=== PATIENT | female | born 1970 | race Caucasian/White ===

== ENCOUNTER 2022-11-24 20:48 | Emergency (ER) | payer BC, SELFPAY ==
[2022-11-24 20:58] VITALS: BP 122/78; PULSE 77; RESP 18; TEMP 36.7; O2SAT 100; BMI 34.4
--- NOTE | 2022-11-24 21:15 | PC.NURSE ---
Laceration to right second finger cleansed with hibicleanse and covered with dry dressing
--- NOTE | 2022-11-24 23:36 | XR_ITS ---
The [address] [address] Patient Name: TERRA ZEPEDA MRN: [id number] date: 1970 Sex: F Assigned Patient Location: ER Current Patient Location: ED.MAIN Accession/Order Number: [id number] Exam Date: 11/24/2022 23:50 Report Date: 11/25/2022 00:49 At the request of: NANI WELLER Procedure: XR finger LT min 2V EXAM: XR finger LT min 2V HISTORY: left hand injury/index COMPARISON: None. TECHNIQUE: AP, oblique and lateral views of the left second digit/index finger. FINDINGS: No acute or intrinsic osseous or articular abnormality is seen. There appears be a laceration near the base of the second digit overlying the proximal phalanx. No soft tissue gas or foreign body is seen. XR/XR finger LT min 2V IMPRESSION: Second digit laceration without foreign body or acute fracture. Electronically authenticated by: ATIF HANDY Date: 11/25/2022 00:49
--- NOTE | 2022-11-24 23:37 | ED_ITS ---
HPI - Extremity Injury (Upper) General Chief Complaint: Extremity Injury, Upper Stated Complaint: FINGER LACERATION Time Seen by Provider: 11/24/22 22:11 Source: patient Mode of arrival: walk-in Limitations: no limitations History of Present Illness HPI narrative: patient bumped her left index finger on a precision jig grinder at home. sustained a laceration to the dorsum of her finger. Denies numbness or weakness or other in jury. Not sure when she had her last tetanus Related Data Home Medications Medication Instructions Recorded Confirmed loratadine 10 mg tablet (Claritin) 10 mg PO DAILY 11/24/22 11/24/22 Allergies Allergy/AdvReac Type Severity Reaction Status Date / Time Penicillins Allergy Intermediate Verified 11/24/22 21:03 Review of Systems ROS Status of ROS 10 or more systems reviewed and unremarkable except as noted in history and below Exam Constitutional Vital Signs, click to edit/add: Last Vital Signs Temp 98.0 F 11/24/22 20:58 Pulse 77 11/24/22 20:58 Resp 18 11/24/22 20:58 BP 122/78 11/24/22 20:58 Pulse Ox 100 11/24/22 20:58 O2 Del Method Room Air 11/24/22 20:58 Common normals: no apparent distress, average body habitus, oriented x3, no limitations, healthy appearing and alert Eye Common normals: EOMs intact bilaterally and conjunctivae normal Respiratory Common normals: no retractions and no use of accessory muscles Extremity Other: SQ lac V shape dorsum of left index finger. 2.5cm. Able to extend finger completely. N/V intact Neuro Common normals: oriented x3, CN's II-XII intact bilaterally, moves all extremities, no focal motor deficits and no sensory deficits noted Psych Appearance: grossly normal Course Vital Signs Vital signs: Vital Signs Temperature 98.0 F 11/24/22 20:58 Pulse Rate 77 11/24/22 20:58 Respiratory Rate 18 11/24/22 20:58 Blood Pressure 122/78 11/24/22 20:58 Pulse Oximetry 100 11/24/22 20:58 Oxygen Delivery Method Room Air 11/24/22 20:58 Temperature 98.0 F 11/24/22 20:58 Pulse Rate 77 11/24/22 20:58 Respiratory Rate 18 11/24/22 20:58 Blood Pressure 122/78 11/24/22 20:58 Pulse Oximetry 100 11/24/22 20:58 Oxygen Delivery Method Room Air 11/24/22 20:58 MDM - Extremity Injury (Upper) MDM Narrative Medical decision making narrative: patient presents with acute lac left dorsal index finger. lac repaired as above. Tolerated well. Discharged home to follow up with her doctor Discharge Plan Discharge Chief Complaint: Extremity Injury, Upper Clinical Impression: Finger laceration Patient Disposition: Home, Self-Care Prescriptions / Home Meds: No Action loratadine [Claritin] 10 mg tablet 10 mg PO DAILY Instructions: Finger Laceration (ED) Additional Instructions: have wound rechecked in 2-3 days and stitches removed in 10-12 days Stand Alone Forms: Portal Instructions Referrals: KATHYA LARSEN [Primary Care Provider] - 1 week Procedures ED Procedure Instructions Procedures Procedures: left finger lac. V shape 4.5cm lAC with exposure of SQ tissue. Inspection neg for FB xray neg for FB per my preliminary review 1% lidocaine as a local betadine and saline used to clean the wound inspected and no evidence of tendon lac repaired with # 8 5.0 nylon stitches.
[2022-11-24] MEDS: ADACEL DIPH,PERTUSS(ACELL),TET VAC/PF 0.5 ML ADULT SYRINGE IM (23:48)
[2022-11-24] MEDS: LIDOCAINE HCL 1% 100 MG/10 ML MDV INJ (23:51)
[2022-11-25] MEDS: CLINDAMYCIN HCL 150 MG CAPSULE 300 MG PO (01:09)
== END 2022-11-25 01:15 | disposition home or self-care (01) ==
PROVIDERS: Emergency Provider Internal Medicine; PCP Family Medicine
DX: S61.211A Laceration without foreign body of left index finger without damage to nail, initial encounter (principal); Z23 Encounter for immunization; W22.8XXA Striking against or struck by other objects, initial encounter; Z79.899 Other long term (current) drug therapy
CPT/HCPCS: 12001; 73140; 90471; 90715; 99284

== ENCOUNTER 2023-12-15 13:12 | Outpatient (OUT) | payer BC, SELFPAY | END 2023-12-15 13:13 | disposition home or self-care (01) | LOC: PST 13:12 | PROVIDERS: PCP Family Medicine; Visit Provider Surgery | DX: Z01.818 Encounter for other preprocedural examination (principal); Z12.11 Encounter for screening for malignant neoplasm of colon ==

== ENCOUNTER 2023-12-22 08:16 | Day surgery (SDC) | payer BC, SELFPAY ==
--- OUTSIDE RECORDS SUMMARY | 2023-12-22 08:23 | XMS_ITS | CCD ---
Author Organization [facility] [place] [facility] Care Team Providers Care Medical Records Director Name Role Phone Kathya Larsen Primary Care Provider LEDA GALVAN Attending Unavailable LEDA GALVAN Admitting Unavailable LEDA GALVAN Consulting Unavailable LEDA GALVAN Attending Unavailable LEDA GALVAN Admitting Unavailable LEDA GALVAN Consulting Unavailable Kathya Larsen DO Primary Care Provider [phone] ANY YOUNG Attending Unavailable ELTON WHITLEY Attending Unavailable Tigre Cruz DO Primary Care Provider [phone] Hector [employer] F[employer] LAYER - EVICTION SPECIALISTAny Primary Care Provi robby TARIQ MAK Referring Unavailable KATHYA LARSEN Primary Care Unavailable TARIQ MAK Referring Unavailable KATHYA LARSEN Primary Care Unavailable TARIQ MAK Referring Unavailable ANY YOUNG Primary Care Unavailable Allergies Allergy Classification Reported Allergen(s) Allergy Type Date of Onset Reaction(s) Facility Penicillins (antibiotic) (1 source) Penicillins Drug Allergy 0 [facility] (4 sources) Penicillins Propensity to adverse reactions to drug 0 [facility] [place] ([facility] sources) Penicillins Drug Intolerance 0 [facility] [employer] Work Phone: (1 source) Penicillins Propensity to adverse reactions to drug 0 [facility] [employer] (formerly [employer]) [place] Digital Medications Current Medications Medication Drug Class(es) Dates Sig (Normalized) Sig (Original) albuterol sulfate HFA 108 (90 Base) MCG/ACT inhaler 4 puff (1 source) Start: 01-09-2020 albuterol sulfate HFA 108 (90 Base) MCG/ACT inhaler 4 puff ascorbic acid 60 mg / beta carotene 5000 unt / copper sulfate 40 mg / dl-alpha tocopheryl acetate 30 unt / sodium selenite 0.04 mg / zinc oxide 40 mg oral tablet (5 sources) Vitamin C take 1 tablet by mouth once daily Multiple Vitamins-Minerals (HAIR/SKIN/NAILS) TABS Take by mouth daily 0 Active bisacodyl 5 mg delayed release oral tablet (2 sources) Stimulant Laxative Start: 11-30-2023 End: 11-30-2023 take 1 tablet by mouth once bisacodyl (Dulcolax) 5 MG EC tablet Indications: Encounter for screening for malignant neoplasm of colon Take 1 tablet (5 mg) by mouth 1 time for 1 dose Do not crush, chew, or split. Take as detailed on clinic hand out for colonoscopy prep 1 tablet 11/30/2023 11/30/2023 Active Ca Phosphate-Cholecalci ferol (CALCIUM WITH D3 PO) (3 sources) Ca Phosphate-Cholecalc iferol (CALCIUM WITH D3 PO) Take by mouth Once a day 4 times a week Active calcium carbonate 1250 mg / cholecalciferol 200 unt oral tablet (6 sources) Vitamin D take 1 tablet by mouth once daily calcium-vitamin D (OSCAL-500) 500-200 MG-UNIT per tablet Take 1 tablet by mouth daily 0 Active cholecalciferol 0.05 mg oral tablet (3 sources) Vitamin D Start: 11-11-2023 take 1 tablet by mouth once daily cholecalciferol (Vitamin D-3) 50 MCG (2000 UT) tablet Indications: Vitamin D deficiency Take 1 tablet (50 mcg) by mouth Daily 11/11/2023 Active chondroitin sulfates 400 mg / glucosamine sulfate 500 mg oral tablet (3 sources) glucosamine-nancy shantel itin 500-400 MG tablet Take 1 tablet by mouth Once a day 4 times a week Active escitalopram 20 mg oral tablet (2 sources) Serotonin Reuptake Inhibitor Start: 02-07-2021 take 1 tablet by mouth once daily escitalopram (LEXAPRO) 20 MG tablet Indications: Irritability TAKE 1 TABLET BY MOUTH EVERY DAY 30 tablet 12 02/07/2021 Active loratadine 10 mg oral tablet (12 sources) take 1 tablet by mouth once daily loratadine (CLARITIN) 10 MG tablet Take 1 tablet by mouth daily Active Multiple Vitamins-Minerals (HAIR/SKIN/NAILS) TABS (1 source) take 1 tablet by mouth once daily Multiple Vitamins-Minerals (HAIR/SKIN/NAILS) TABS Take by mouth daily 0 Active naproxen sodium 220 mg oral capsule (6 sources) Nonsteroidal Anti-inflammatory Drug Naproxen Sodium (ALEVE) 220 MG CAPS Take by mouth daily as needed for Pain 0 Active phentermine hydrochloride 37.5 mg oral tablet (1 source) Sympathomimetic Amine Anorectic Start: 02-15-2020 End: 03-16-2020 take 1 tablet by mouth once daily before breakfast phentermine (ADIPEX-P) 37.5 MG tablet Indications: Obesity (BMI 30.0-34.9) Take 1 tablet by mouth every morning (before breakfast) for 30 days. 30 tablet 0 02/15/2020 03/16/2020 Active 24 hr phentermine 15 mg / topiramate 92 mg extended release oral capsule (4 sources) Sympathomimetic Amine Anorectic Start: 12-12-2019 End: 01-11-2020 take 1 capsule by mouth once daily Phentermine-Topiram ate (QSYMIA) 15-92 MG CP24 Indications: Obesity (BMI 35.0-39.9 without comorbidity) Take 1 capsule by mouth daily for 30 days. 30 capsule 0 12/12/2019 01/11/2020 Active polyethylene glycol 3350 67004 mg powder for oral solution (2 sources) Osmotic Laxative Start: 11-30-2023 End: 11-30-2023 take 17 g by mouth once polyethylene glycol, PEG, 3350 (Glycolax) 17 GM/SCOOP powder Indications: Colonoscopy Take 238 g by mouth 1 (one) time for 1 dose Take as detailed from clinic hand out for colonoscopy prep 238 g 11/30/2023 11/30/2023 Active Probiotic Product (PROBIOTIC DAILY PO) (2 sources) Probiotic Produc t (PROBIOTIC DAILY PO) Take by mouth 0 Active Completed/Discontinued Medications Medication Drug Class(es) Dates Sig (Normalized) Sig (Original) azithromycin 250 mg oral tablet (4 sources) Macrolide Antimicrobial Start: 11-09-2023 End: 11-30-2023 azithromycin (Zithromax) 250 MG tablet Indications: Acute non-recurrent pansinusitis Take 2 tablets day one then 1 tablet daily 6 tablet 11/09/2023 11/30/2023 Discontinued (Therapy completed) Start: 01-09-2020 End: 01-13-2020 azithromycin (ZITHROMAX Z-PA K) 250 MG tablet Indications: Atypical pneumonia , Bronchospasm Take 2 tablets (500 mg) on Day 1, and then take 1 tablet (250 mg) on days 2 through 5. 1 packet 0 01/09/2020 01/13/2020 Active methylPREDNISolone 4 mg oral tablet (4 sources) Corticosteroid Start: 11-09-2023 End: 11-30-2023 methylPREDNISolone (Medrol) 4 MG tablet Indications: Acute non-recurrent pansinusitis 1 MEDROL DOSE FRANCINE 1 tablet 11/09/2023 11/30/2023 Discontinued (Therapy completed) Start: 01-09-2020 End: 01-15-2020 methylPREDNISolone (MEDROL, FRANCINE,) 4 MG tablet Take by mouth. 21 tablet 0 01/09/2020 01/15/2020 Active Problems Active Problems Problem Classification Problem Date Documented Date Episodic/Chronic Immunizations and screening for infectious disease (4 sources) Encounter for immunization; Translations: [ENCOUNTER FOR IMMUNIZATION] Onset: 07-05-2020 Episodic Other nutritional; endocrine; and metabolic disorders (1 source) Abnormal weight gain; Translations: [Abnormal weight gain] Onset: 11-02-2023 Episodic Other screening for suspected conditions (not mental disorders or infectious disease) (4 sources) Patient encounter status; Translations: [Encounter for screening for malignant neoplasm of colon] Onset: 12-15-2023 11-30-2023 Episodic Other upper respiratory disease (1 source) Bronchospasm; Translations: [Bronchospasm] Episodic Pneumonia (except that caused by tuberculosis or sexually transmitted disease) (1 source) Atypical pneumonia; Translations: [Atypical pneumonia] Episodic Residual codes; unclassified (1 source) Pain; Translations: [Pain, unspecified] Episodic Unclassified (2 sources) Patient encounter status; Translations: [Women's annual routine gynecological examination] Past or Other Problems Problem Classification Problem Date Documented Da te Episodic/Chronic Mood disorders (3 sources) Mood disorders Onset: 11-09-2023 11-09-2023 Results Test Name Value Interpretation Reference Range Facility DBT Breast - bilateral scree joeyn 12-15-2023 No evidence of malignancy. Advise annual screening mammography. Breast tissue can be either dense or not dense. Dense tissue makes it harder to find breast cancer on a mammogram and also raises the risk of developing breast cancer. Your breast tissue is NOT DENSE. Talk to your health care provider about breast density, risk for breast cancer and your individual situation. BI-RADS 1 BIRADS: BIRADS - CATEGORY 1 Negative, no evidence of malignancy. Normal interval follow-up is recommended in 12 months. OVERALL ASSESSMENT - NEGATIVE A letter of notification will be sent to the patient regarding the results. [employer] recommends annual mammograms for women 40 years and older. Performing Facility: [place] [address] [facility] EXAMINATION: SCREENING DIGITAL BILATERAL MAMMOGRAM WITH TOMOSYNTHESIS, 12/15/2023 TECHNIQUE: Screening mammography was performed with tomosynthesis including MLO and CC views of the bilateral breasts. Computer aided detection was used for the interpretation of this exam. COMPARISON: 01 March 2020; 12 August 2018 HISTORY: Screening. No family history of breast cancer. No hormonal replacement therapy or breast interventions. TC score 8.92. FINDINGS: Bilateral breasts are composed of scattered fibroglandular density. No skin thickening, nipple contour changes, suspicious calcifications, suspicious masses, areas of architectural distortion or significant interval changes are noted. [facility] Radiology Study observation (narrative) [place] [employer] [facility] DBT Breast - bilateral scree ningOrdered By: Tess Dick on 12-15-2023 [employer] [facility] Work Phone: [facility] EDE [employer] 12-15-2023 [facility] DIG[facility] S[facility] BILATERAL EXAMINATION: SCREENING DIGITAL BILATERAL MAMMOGRAM WITH TOMOSYNTHESIS, 12/15/2023 TECHNIQUE: Screening mammography was performed with tomosynthesis including MLO and CC views of the bilateral breasts. Computer aided detection was used for the interpretation of this exam. COMPARISON: 01 March 2020; 12 August 2018 HISTORY: Screening. No family history of breast cancer. No hormonal replacement therapy or breast interventions. TC score 8.92. FINDINGS: Bilateral breasts are composed of scattered fibroglandular density. No skin thickening, nipple contour changes, suspicious calcifications, suspicious masses, areas of architectural distortion or significant interval changes are noted. IMPRESSION: No evidence of malignancy. Advise annual screening mammography. Breast tissue can be either dense or not dense. Dense tissue makes it harder to find breast cancer on a mammogram and also raises the risk of developing breast cancer. Your breast tissue is NOT DENSE. Talk to your health care provider about breast density, risk for breast cancer and your individual situation. BI-RADS 1 BIRADS: BIRADS - CATEGORY 1 Negative, no evidence of malignancy. Normal interval follow-up is recommended in 12 months. OVERALL ASSESSMENT - NEGATIVE A letter of notification will be sent to the patient regarding the results. [employer] recommends annual mammograms for women 40 years and older. Performing Facility: [place] [address] Interpreted by: Tess Dick MD Signed by: Tess Dick MD 12/15/23 Final result Normal [facility] Cytology Reporton 11-02-2023 Cytology report Cyto stain.thin prep Doc (Cvx/Vag) (NOTE) Path Number: [id number] DIAGNOSIS Imaged ThinPrep Pap - Cervical (1 monolayer slide): Specimen Adequacy: Satisfactory for evaluation. -Endocervical/transf ormation zone component is absent. Descriptive Diagnosis: Negative for intraepithelial lesion or malignancy. Shift in perla suggestive of bacterial vaginosis. Cytotech Screener: LT1 Rescreened By: EY Electronically Signed Out Ashly REYNOLDS(ASCP) ey/11/09/2023 Source of Specimen: A: Imaged ThinPrep Pap - Cervical (1 monolayer slide) HPV Reflex?............. .........HPV if Abnormal Clinical History Endometrial ablation Z01.419 Routine nurse obgyn exam without abnormal findings Processing Lab: [address] [id number] Interpretation performed at [address] [id number] This Pap Test has been evaluated with the assistance of the ThinPrep Pap Test Imaging System. The Pap smear is a screening test primarily for squamous epithelial lesions, which is subject to both false negative and false positive results. Your patient should be reminded to consult you immediately if she experiences any suspicious signs or symptoms, regardless of her Pap smear result. GYNECOLOGIC CYTOLOGY REPORT Patient Name: NAKIA ZEPEDA [facility] Rec: [id number] [facility] [employer] [facility] ANATOMIC PATHOLOGY [address] [place] [address]. [place], [place] [address] Normal [facility] Hemoglobin A1Con 11-02-2023 Glucose [Mass/Vol] 114 mg/dL Normal [facility] Comment on above: Result Comment: The ADA and AACC recommend providing the estimated average glucose result to permit better patient understanding of their HBA1c result. Performed By: #### G LYHGB #### [facility] [address] [place], [place] [id number] Supervisor [employer]: Ted Oates MD HbA1c (Bld) [Mass fraction] 5.6 % Normal 4.0-6.0 [facility] Comment on above: Performed By: #### G LYHGB #### [facility] [address] [place] [address] Supervisor Toy [employer]: Ted Oates MD TSH w/reflex to FT4on 2023 Thyroid Stim. Horm. 1.46 uIU/mL Normal 0.27-4.20 [facility] Comment on above: Performed By: #### T SHX #### [facility] [address] [place] [address] Supervisor Toy [employer]: Benja Humphrey MD XR HAND RIGHT (MIN 3 VIEWS)o n 05-01-2021 No acute findings or significant degenerative changes. [facility] EXAMINATION: THREE XRAY VIEWS OF THE RIGHT HAND 04/30/2021 5:13 pm COMPARISON: None. HISTORY: ORDERING SYSTEM PROVIDED HISTORY: Pain FINDINGS: No acute fracture or dislocation. The interphalangeal and metacarpophalangeal joint spaces are preserved. [facility] Andrei Cleary P - 05/01/2021 EXAMINATION: THREE XRAY VIEWS OF THE RIGHT HAND 04/30/2021 5:13 pm COMPARISON: None. HISTORY: ORDERING SYSTEM PROVIDED HISTORY: Pain FINDINGS: No acute fracture or dislocation. The interphalangeal and metacarpophalangeal joint spaces are preserved. IMPRESSION: No acute findings or significant degenerative changes. [facility] Work Phone: XR HAND RIGHT (MIN 3 VIEWS)O rdered By: Andrei Celary on 05-01-2021 [facility] Work Phone: XR HAND RIGHT (MIN 3 VIEWS)o n 04-30-2021 Radiology Study observation (narrative) [facility] Work Phone: CBC Auto DifferentialOrdered By: Kathya Larsen on 06-30-2020 [employer] # 0.10 [employer] [facility] Work Phone: Absolute Immature Granulocyte <0.03 [facility] Work Phone: Absolute Lymph # 1.69 [employer] [facility] Work Phone: Absolute [place] # 0.54 [employer] [facility] Work Phone: Basophils (Bld) [#/Vol] 10*3/uL [facility] [employer] Work Phone: Basophils/100 WBC (Bld) 0 % 0 - 2 % [employer] Work Phone: Differential Type NOT REPORTED [employer] Phone: Eosinophils/100 WBC (Bld) 2 % 1 - 4 % [employer] Phone: Hematocrit (Bld) [Volume fraction] 41.5 % 36.3 - 47.1 % [employer] Phone: Hemoglobin.gastrointest inal spec 1 Ql (Stl) 13.6 g/dL 11.9 - 15.1 g/dL [employer] Phone: Immature granulocytes/100 WBC (Bld) 0 % 0 [employer]atter Phone: Lymphocytes/100 WBC (Bld) 28 % 24 - 43 % [employer]atter Phone: MCH (RBC) [Entitic mass] 30.4 pg 25.2 - 33.5 pg [employer]atter Phone: MCHC (RBC) [Mass/Vol] 32.8 g/dL 28.4 - 34.8 g/dL [facility] Work Phone: MCV (RBC) [Entitic vol] 92.8 fL 82.6 - 102.9 fL [employer]atter Phone: Monocytes/100 WBC (Bld) 9 % 3 - 12 % [facility] Work Phone: NRBC Automated 0.0 0.0 per 100 WBC Platter Phone: Platelet distribution width (Bld) [Ratio] 12.8 % 11.8 - 14.4 % [employer]atter Phone: Platelet Estimate NOT REPORTED [employer] Phone: Platelet mean volume (Bld) [Entitic vol] 9.1 fL 8.1 - 13.5 fL [employer]atter Phone: Platelets (Bld) [#/Vol] 230 10*3/uL Platter Phone: RBC (Bld) [#/Vol] 4.47 10*6/uL 3.95 - 5.1 1 m/uL [facility] Work Phone: RBC (Bld) [#/Vol] NOT REPORTED [employer] Phone: Segmented neutrophils/100 WBC (Bld) 61 % 36 - 65 % Platter Phone: Segs Absolute 3.58 [employer] Work Phone: WBC (Bld) [#/Vol] 6.0 10*3/uL [facility] Work Phone: WBC (Bld) [#/Vol] NOT REPORTED [employer]atter Phone: Comprehensive Metabolic Pane lOrdered By: Kathya Larsen on 06-30-2020 Albumin [Mass/Vol] 4.4 g/dL 3.5 - 5.2 g/dL [employer] Phone: Albumin/Globulin [Mass ratio] 1.6 {ratio} Platter Phone: ALP (Bld) [Catalytic activity/Vol] 66 U/L 35 - 104 U/L Platter Phone: ALT [Catalytic activity/Vol] 16 U/L 5 - 33 U/L Platter Phone: Anion gap [Moles/Vol] 12 mmol/L 9 - 17 mmol/L Platter Phone: AST [Catalytic activity/Vol] 17 U/L <32 Platter Phone: Bilirubin [Mass/Vol] 0.63 mg/dL 0.3 - 1 .2 mg/dL [employer]atter Phone: Calcium [Mass/Vol] 9.5 mg/dL 8.6 - 10. 4 mg/dL Platter Phone: Chloride [Moles/Vol] 104 mmol/L 98 - 10 7 mmol/L Platter Phone: CO2 [Moles/Vol] 22 mmol/L 20 - 31 mmol/L [employer]atter Phone: Creatinine [Mass/Vol] 0.76 mg/dL 0.50 - 0.90 mg/dL [employer]atter Phone: Free PSA/Total PSA [Mass fraction] 7.1 g/dL 6.4 - 8.3 g/dL Platter Phone: GFR >60 >60 mL/min [employer] Phone: GFR Non- >60 >60 mL/min Platter Phone: Glucose [Mass/Vol] 103 mg/dL High 70 - 99 mg/dL Platter Phone: Interpretation and review of laboratory results Abnormal Platter Phone: Potassium [Moles/Vol] 4.1 mmol/L 3.7 - 5.3 mmol/L [employer]atter Phone: Sodium [Moles/Vol] 138 mmol/L 135 - 144 mmol/L [employer]atter Phone: Urea nitrogen (BldV) [Mass/Vol] 10 mg/dL 6 - 20 mg/dL [employer]atter Phone: Urea nitrogen/Creatinine (Bld) [Mass ratio] 13 Platter Phone: Laboratory - Chemistry and C hemistry - challengeOrdered By: Kathya Larsen on 06-30-2020 GFR/1.73 sq M.predicted MDRD (S/P/Bld) [Vol rate/Area] Platter Phone: Comment on above: Average GFR for 40-4 9 years old: 99 mL/min/1.73sq m Chronic Kidney Disease: <60 mL/min/1.73sq m Kidney failure: <15 mL/min/1.73sq m eGFR calculated using average adult body mass. Additional eGFR calculator available at: http://www.Shoppilot/multiple_crcl_2012.htm Stage 1: Some kidney damage normal GFR Stage 2: Mild kidney damage GFR 60-89 Stage 3: Moderate kidney damage GFR 30-59 Stage 4: Severe kidney damage GFR 15-29 Stage 5: Severe kidney damage GFR <15 ESRD - chronic treatment by dialysis or transplant Lipid PanelOrdered By: Kathya Larsen on 06-30-2020 Cholesterol [Mass/Vol] 152 mg/dL <200 [employer] Phone: Comment on above: Cholesterol Guidelines: <200 Desirable 200-240 Borderline >240 Undesirable Cholesterol in HDL [Mass/Vol] 44 mg/dL >40 [facility] Phone: Comment on above: HDL Guidelines: <40 Undesirable 40-59 Borderline >59 Desirable Cholesterol in LDL [Mass/Vol] 95 mg/dL 0 - 130 mg/dL [employer]atter Phone: Comment on above: LDL Guidelines: <100 Desirable 100-129 Near to/above Desirable 130-159 Borderline >159 Undesirable Direct (measured) LDL and calculated LDL are not interchangeable tests. Cholesterol in VLDL [Mass/Vol] NOT REPORTED 1 - 30 mg/dL Platter Phone: Cholesterol.total/Suzi sterol in HDL [Mass ratio] 3.5 {ratio} <5 Platter Phone: Triglyceride [Mass/Vol] 66 mg/dL <150 M [email or web address] Phone: Comment on above: Triglyceride Guidelines: <150 Desirable 150-199 Borderline 200-499 High >499 Very high Based on AHA Guidelines for fasting triglyceride, November 2011. [id number] By: Kathya Larsen on 06-30-2020 T4 [Mass/Vol] 5.7 ug/dL 4.5 - 10.9 ug/dL [employer]atter Phone: TSH without ReflexOrdered By : Kathya Larsen on 06-30-2020 TSH Qn 3.36 m[IU]/L [employer]atter Phone: Vitamin D 25 HydroxyOrdered By: Kathya Larsen on 06-30-2020 Interpretation and review of laboratory results Abnormal [employer]atter Phone: Vit D, 25-Hydroxy 25.7 ng/mL Low 30.0 - 100 .0 ng/mL [employer]atter Phone: Comment on above: Reference Range: Vitamin D status Range Deficiency <20 ng/mL Mild Deficiency 20-30 ng/mL Sufficiency 30-100 ng/mL Toxicity >100 ng/mL [facility] DIG[facility] S[facility]EN BILEarlene Joseph 03-02-2020 No mammographic evidence of malignancy. BI-RADS 1 BIRADS: BIRADS - CATEGORY 1 Negative, no evidence of malignancy. Normal interval follow-up is recommended in 12 months. OVERALL ASSESSMENT - NEGATIVE A letter of notification will be sent to the patient regarding the results. [employer] recommends annual mammograms for women 40 years and older. [facility] [place] EXAMINATION: SCREENING DIGITAL BILATERAL MAMMOGRAM WITH TOMOSYNTHESIS, 03/01/2020 TECHNIQUE: Screening mammography was performed with tomosynthesis including MLO and CC views of the bilateral breasts. Computer aided detection was used for the interpretation of this exam. COMPARISON: 08/12/2018, 07/29/2017 and 06/23/2016 HISTORY: Screening. FINDINGS: The breast tissue is composed of scattered fibroglandular tissue. There is no suspicious mass, suspicious microcalcification, or area of architectural distortion. [employer] Jeremías, Rust Incoming Radiant Results From [employer] - 03/02/2020 8:27 AM EST EXAMINATION: SCREENING DIGITAL BILATERAL MAMMOGRAM WITH TOMOSYNTHESIS, 03/01/2020 TECHNIQUE: Screening mammography was performed with tomosynthesis including MLO and CC views of the bilateral breasts. Computer aided detection was used for the interpretation of this exam. COMPARISON: 08/12/2018, 07/29/2017 and 06/23/2016 HISTORY: Screening. FINDINGS: The breast tissue is composed of scattered fibroglandular tissue. There is no suspicious mass, suspicious microcalcification, or area of architectural distortion. IMPRESSION: No mammographic evidence of malignancy. BI-RADS 1 BIRADS: BIRADS - CATEGORY 1 Negative, no evidence of malignancy. Normal interval follow-up is recommended in 12 months. OVERALL ASSESSMENT - NEGATIVE A letter of notification will be sent to the patient regarding the results. [employer] recommends annual mammograms for women 40 years and older. [facility] HI XR CHEST PORTABLEon 01-09-20 20 Bilateral opacities most pronounced in the right lung base with relative apical sparing. Commonly reported imaging features of viral pneumonia are present. [facility] [employer] [place] EXAMINATION: ONE XRAY VIEW OF THE CHEST 01/09/2020 3:47 pm COMPARISON: None. HISTORY: ORDERING SYSTEM PROVIDED HISTORY: cough, SOB FINDINGS: Bilateral opacities most pronounced in the right lung base with relative apical sparing. No effusion or pneumothorax. The cardiomediastinal silhouette is normal. The osseous structures are intact without acute process. [employer] Jeremías, [place] Incoming Radiant Results From [employer] - 01/09/2020 3:59 PM EST EXAMINATION: ONE XRAY VIEW OF THE CHEST 01/09/2020 3:47 pm COMPARISON: None. HISTORY: ORDERING SYSTEM PROVIDED HISTORY: cough, SOB FINDINGS: Bilateral opacities most pronounced in the right lung base with relative apical sparing. No effusion or pneumothorax. The cardiomediastinal silhouette is normal. The osseous structures are intact without acute process. IMPRESSION: Bilateral opacities most pronounced in the right lung base with relative apical sparing. Commonly reported imaging features of viral pneumonia are present. [place], [place] Vital Signs Date Time Vital Sign Value Performing Clinician Facility 11-30-2023 14:16-0400 Body height 177.8 cm Elton MoonClerk Work Phone: [facility] 11-30-2023 14:16-0400 Body mass index (BMI) [Ratio] 41.32 kg/m2 Elton Wrightgauzz Work Phone: [facility] 11-30-2023 14:16-0400 Body weight 130.64 kg Eltonguillermo Wrightgauzz Work Phone: [facility] 11-30-2023 14:16-0400 Diastolic blood pressure 78 mm[Hg] Elton MoonClerk Work Phone: [facility] 11-30-2023 14:16-0400 Heart rate 78 /min Elton MoonClerk Work Phone: [facility] 11-30-2023 14:16-0400 Respiratory rate 14 /min Elton MoonClerk Work Phone: [facility] 11-30-2023 14:16-0400 SaO2% (BldA) [Mass fraction] 98 % Elton MoonClerk Work Phone: [facility] 11-30-2023 14:16-0400 Systolic blood pressure 122 mm[Hg] Eltonguillermo Wrightgauzz Work Phone: [facility] 01-09-2020 16:12-0500 Pulse Oximetry 95 % Aparna Lovell [facility] , [place] 01-09-2020 14:31-0500 BMI (Body Mass Index) 34.17 kg/m2 Aparna Lovell [place], [place] 01-09-2020 14:31-0500 Body Temperature 97.81 [degF] Aparna Lovell [facility] 01-09-2020 14:31-0500 Body weight 111.13 kg Aparna Lovell [facility] , [place] 01-09-2020 14:31-0500 BP Diastolic 75 mm[Hg] [facility] , [place] 01-09-2020 14:31-0500 BP Systolic 129 mm[Hg] Aparna John [facility] , [place] 01-09-2020 14:31-0500 Pulse (Heart Rate) 107 /min Aparna John [facility], [place] 01-09-2020 14:31-0500 Respiratory Rate 21 /min Aparna John [facility] [place] Encounters Encounter Date Encounter Type Care Provider Facility Start: 12-15-2023 End: 12-17-2023 ambulatory TARIQ MAK [facility] Start: 12-15-2023 End: 12-17-2023 Subsequent hospital visit by physician Magda Mammography Room At [facility] Mammography Comment on above: Screening mammogram, encounter for Start: 11-30-2023 End: 11-30-2023 Bamboo flowsheet Elton Whitley DO Work Phone: [facility] Start: 11-30-2023 End: 11-30-2023 Bamboo flowsheet Elton Angi DO Work Phone: [facility] Start: 11-30-2023 End: 11-30-2023 Patient encounter procedure Elton Angi DO Work Phone: [facility] Comment on above: Encounter for screen ing for malignant neoplasm of colon (Primary Dx) Start: 11-30-2023 End: 11-30-2023 ambulatory ELTON WHITLEY Not Available Start: 11-09-2023 End: 11-09-2023 ambulatory ANY YOUNG Not Available Start: 11-02-2023 Encounter for gynecological examination (general) (routine) without abnormal findings [facility] Start: 11-02-2023 End: 11-02-2023 ambulatory TARIQ MAK [facility] Start: 04-30-2021 End: 05-02-2021 Subsequent hospital visit by physician Magda Butts Dr Room 2 [facility] Radiology Comment on above: Pain Start: 07-05-2020 End: 07-06-2020 ambulatory LEDA GALVAN Facility:H1 Start: 06-30-2020 End: 06-30-2020 Subsequent hospital visit by physician Kathya Larsen DO Work Phone: [facility] Start: 06-14-2020 End: 06-15-2020 ambulatory LEDA GALVAN Facility:[facility]1 Start: 03-01-2020 End: 03-03-2020 Subsequent hospital visit by physician [facility] Mammography Room At [facility] Comment on above: Encounter for screen ing mammogram for malignant neoplasm of breast Start: 01-09-2020 End: 01-09-2020 Emergency department patient visit Aparna Lovell Work Phone: [facility] ED Comment on above: Atypical pneumonia ( Primary Dx); Bronchospasm Start: 01-06-2020 End: 01-06-2020 [facility] Schedule [facility] Covid Screening Comment on above: Arrived Start: 12-12-2019 End: 12-12-2019 Subsequent [facility] visit [facility] Start: 12-12-2019 End: 12-12-2019 Subsequent hospital visit by physician [facility] Comment on above: Women's annual routi ne gynecological examination Procedures Date Procedure Procedure Detail Performing Clinician Start: 12-15-2023 Screening mammograph y bi 2-view breast inc cad Tariq Mak MD Work Phone: Start: 11-02-2023 Microscopic observat ion [Identifier] in Cervix by Cyto stain Elton Whitley DO Work Phone: Start: 04-30-2021 Radex hand minimum 3 views Kathya Chula Guillermo DO Work Phone: Start: 01-16-2021 Microscopic observat ion [Identifier] in Cervix by Cyto stain [facility] 2 Start: 06-30-2020 Comprehensive metabo lic panel Kathya Chula Guillermo DO Work Phone: Start: 06-30-2020 Lipid panel Kathya Chula Homer bates DO Work Phone: Start: 03-01-2020 Screening mammograph y bi 2-view breast inc cad Tariq Mak Work Phone: Start: 03-01-2020 Mammography Elton crawford DO Work Phone: Start: 01-09-2020 Radiologic exam ches t single view Aparna Lovell Work Phone: Plan of Treatment Date Care Activity Detail Author Start: 11-01-2026 Diabetes screen Diabetes screen [facility] Start: 11-01-2026 Screening for malign ant neoplasm of cervix [facility] Start: 12-14-2025 Screening for malign ant neoplasm of breast Breast cancer screen [facility] Start: 06-30-2025 Lipid panel [facility] Start: 01-17-2024 Screening for malign ant neoplasm of cervix [facility] Start: 11-30-2023 End: 11-30-2023 Patient encounter procedure 11/30/2023 2:00 PM EDT Office Visit ANJELICA KEITH [address] [place] [address] Elton Whitley, DO [address] [place] [address] Arrived ANJELICA KEITH Comment on above: Arrived Start: 10-25-2023 COVID-19 Vaccine ( season) COVID-19 Vaccine ( season) [facility] Start: 10-25-2023 Influenza vaccination Influenza Vacc ine (#1) [facility] Start: 09-24-2023 Influenza vaccination Flu vaccine (# 1) [facility] Start: 12-11-2022 Screening for malign ant neoplasm of cervix Cervical cancer screen [place], [place] Start: 2022 Shingles vaccine (1 of 2) Shingles vaccine (1 of 2) [facility] Start: 06-28-2021 Screening for malign ant neoplasm of cervix Cervical cancer screen [place], [place] Start: 03-01-2021 Screening for malign ant neoplasm of breast Mammogram [facility] Start: 12-05-2020 COVID-19 Vaccine (3 - Booster for Pfizer series) COVID-19 Vaccine (3 - Booster for Pfizer series) [facility] Start: 10-24-2020 Influenza vaccination Flu vacc ine (Season Ended) [facility] Work Phone: Start: 03-14-2020 End: 03-14-2020 Office Visit 03/14/2020 Office Visit Obstetrics and Gynecology Tariq Mak MD [address] [place], [place] [id number] [facility] Start: 03-01-2020 End: 03-01-2020 Appointment 03/01/2020 Appointment Radiology [facility] Mammography Start: 01-16-2020 End: 01-16-2020 Office Visit 01/16/2020 Office Visit Obstetrics and Gynecology Tariq Mak MD [address] [place] [address] [facility] Start: 10-25-2019 Influenza vaccination Flu vaccine (# 1) [place], [place] Start: 05-31-2018 Lipid panel Lipid screen [place], [place] Start: 2017 Screening for malign ant neoplasm of colon [facility] Start: 2012 Diabetes screen Diabetes screen [place], [place] Start: 08-26-2007 Diabetes screen Diabetes screen [facility] Start: 2002 Screening for malign ant neoplasm of cervix [facility] Start: 08-26-1991 DTaP/Tdap/Td vaccine (1 - Tdap) DTaP/Tdap/Td vaccine (1 - Tdap) [facility] Start: 08-26-1991 Hepatitis B vaccine (1 of 3 - 19+ 3-dose series) Hepatitis B vaccine (1 of 3 - 19+ 3-dose series) [facility] Start: 1990 Hepatitis C screening Hepatitis C sc reen [facility] Start: 1988 COVID-19 Vaccine (1) COVID-19 Vaccin e (1) [facility] Work Phone: Start: 08-26-1987 HIV screening HIV screen [facility] Start: 1984 Depression Screen Depression Screen [facility] Start: 1978 Pneumococcal 0-64 ye ars Vaccine (1 of 1 - PPSV23) Pneumococcal 0-64 years Vaccine (1 of 1 - PPSV23) [place], [place] Start: 1972 Hepatitis C screening Hepatitis C sc reen [facility] Start: 1972 Screening for malign ant neoplasm of colon [facility] End: 01-06-2020 Covid-19 Ambulatory Covid-19 Ambulatory Lab Routine Once for 1 Occurrences starting 01/06/2020 until 01/06/2020 [place] Comment on above: Once for 1 Occurrenc es starting 01/06/2020 until 01/06/2020 Covid-19 Ambulatory Covid-19 Amb ulatory Lab Routine 01/06/2020 12:16 PM EST [place] End: 12-13-2019 Cytopathology procedure, preparation of smear, genital source PAP SMEAR Lab Routine Women's annual routine gynecological examination 1 Occurrences starting 12/13/2019 until 12/13/2019 [place] Comment on above: 1 Occurrences starti ng 12/13/2019 until 12/13/2019 MDI Treatment MDI Treatment Respiratory Care Routine Every 6hr As Needed until discontinued starting 01/09/2020 [place] Comment on above: Every 6hr As Needed until discontinued starting 01/09/2020 Immunizations Immunization Date Immunization Notes Care Provider Kody momin 12-13-2020 Influenza, injectabl e, Madin [place] Canine Kidney, preservative free, quadrivalent Elton Angi DO Work Phone: [facility] 12-13-2020 influenza virus vacc ine, unspecified formulation Elton Angi DO Work Phone: [facility] 12-03-2019 influenza, injectabl e, quadrivalent, preservative free Elton Angi DO Work Phone: [facility] 12-08-2018 influenza, injectabl e, quadrivalent, preservative free Elton Angi DO Work Phone: [facility] 12-25-2008 novel influenza-H1N1 -09, preservative-free, injectable Elton Angi DO Work Phone: [facility] Payers Date Payer Category Payer Unknown BCBS BCBS [id number] 2023-Present [phone] [address] [place] [address] [id number] 2023 Unknown [id number] 2016 Unknown BCBS [place] - [place] P PO [id number] 2016-Present [address] [place] [address] [id number] 1972 Unknown [id number] 1972 Unknown [id number] 1972 Unknown [id number] 1972 Unknown [id number] 1972 Unknown [id number] 1972 Unknown [id number] 1972 Unknown [id number] 1959 Unknown [id number] Social History Date Type Detail Facility Start: 12-12-2019 End: 11-02-2023 Tobacco smoking status NHIS Former smoker [facility] Start: 07-24-1990 End: 04-26-2009 History of tobacco use Current smoker [employer] [place] Start: 07-24-1990 End: 04-26-2009 History of tobacco use Cigarette Smoker [place] Start: 12-12-2019 End: 11-02-2023 Tobacco use and exposure Never used [facility] [place] [place] Start: 12-12-2019 End: 12-15-2023 Alcohol intake Current drinker of alcohol (finding) [place] Start: 09-30-2017 Alcohol Comment OCC [place] Start: 1970 Sex Assigned At Not on file [place] Exposure to SARS-CoV -2 (event) Yes [place], [place] Start: 1970 Sex Assigned At Female [facility] Start: 11-02-2022 End: 11-09-2023 History of Social function [facility] Start: 11-02-2022 End: 11-09-2023 Alcohol Use Disorder Identification Test - Consumption [AUDIT-C] [facility] How often to you hav e a drink containing alcohol? 2-3 time sa week [facility] How many standard dr inks containing alcohol do you have on a typical day? 3 or 4 [facility] How often do you hav e 6 or more drinks on 1 occasion? Never [facility] Start: 11-09-2023 Tobacco Comment Smoked 1 ppd for 15 years, years ago [facility] Patient Health Questionnaire 9 item (PHQ-9) total score [Reported] 0 [facility] Start: 10-30-2022 Alcohol Comment Sometimes not every week [facility] Start: 04-26-2021 Gender identity Identifies as female gender (finding) [facility] Start: 04-26-2021 Sexual orientation Heterosexual (finding) [facility] History of Present illness Narrative 11-30-2023 Elton Whitley DO - 11/30/2023 2:00 PM EDT Note Date & Type Note Facility 11-30-2023 History of Presen t illness Narrative General Surgery H&P Nakia Zepeda 1970 Nakia Zepeda is a 53 y.o. female presents with chief complaint of Colonoscopy (Pt presents today for a colonoscopy consult. Pt denies/admits to: denies having a colonoscopy before. Pt denies abdominal pain. Pt denies rectal bleeding. Pt denies changes in bowel movements. Pt denies a family history of colon cancer that they know of. Pt denies any concern today. ) Denies abdominal pain. Denies melena or hematochezia. Denies hx of unplanned weight loss. Denies fevers, chills, or sweats. Denies nausea or vomiting. Last colonoscopy was never SUBJECTIVE: MEDICATIONS: ALLERGIES Current Outpatient Medications Medication Instructions bisacodyl (DULCOLAX) 5 mg, Oral, Once, Do not crush, chew, or split. Take as detailed on clinic hand out for colonoscopy prep Ca Phosphate-Cholecalciferol (CALCIUM WITH D3 PO) Oral, Once a day 4 times a week cholecalciferol (VITAMIN D-3) 50 mcg, Oral, Daily glucosamine-chondroitin 500-400 MG tablet 1 tablet, Oral, Once a day 4 times a week loratadine (CLARITIN) 10 mg, Oral, Daily polyethylene glycol (PEG) 3350 (GLYCOLAX) 238 g, Oral, Once, Take as detailed from clinic hand out for colonoscopy prep Allergies Allergen Reactions Penicillins PAST MEDICAL HISTORY: SOCIAL HISTORY SURGICAL HISTORY: Past Medical History: Diagnosis Date Allergic Anxiety Arthritis Depression (CMS/HCC) Social History Tobacco Use Smoking status: Former Current packs/day: 1.00 Average packs/day: 1 pack/day for 15.0 years (15.0 ttl pk-yrs) Types: Cigarettes Smokeless tobacco: Never Tobacco comments: Smoked 1 ppd for 15 years, years ago Vaping Use Vaping status: Never Used Substance Use Topics Alcohol use: Yes Drug use: Never Past Surgical History: Procedure Laterality Date SECTION, LOW TRANSVERSE 1216 ENDOMETRIAL ABLATION GANGLION CYST EXCISION Left wrist KNEE ARTHROSCOPY W/ LASER TOE SURGERY Right 3rd toe TONSILLECTOMY Family History Problem Relation Name Age of Onset Hyperlipidemia Mother Gisele Alcohol abuse Father Clifford Hearing loss Father Clifford Other (high blood pressure) Father Clifford No Known Problems Paternal Grandmother No Known Problems Paternal Grandfather Cancer Father's Brother Hema Allergies Allergen Reactions Penicillins Past Surgical History: Procedure Laterality Date SECTION, LOW TRANSVERSE 1216 ENDOMETRIAL ABLATION GANGLION CYST EXCISION Left wrist KNEE ARTHROSCOPY W/ LASER TOE SURGERY Right 3rd toe TONSILLECTOMY Tobacco Use: Medium Risk (11/30/2023) Patient History Smoking Tobacco Use: Former Smokeless Tobacco Use: Never Passive Exposure: Not on file Alcohol Use: Alcohol Misuse (11/09/2023) AUDIT-C Frequency of Alcohol Consumption: 2-3 times a week Average Number of Drinks: 3 or 4 Frequency of Binge Drinking: Never Depression: At risk (11/09/2023) PHQ-2 PHQ-2 Score: 3 Physical Activity: Not on file REVIEW OF SYMPTOMS: Review of Systems All other systems reviewed and are negative. 10 systems were reviewed. Positives noted above. Remainder are negative per CMS guidelines. OBJECTIVE: Visit Vitals BP 122/78 Pulse 78 Resp 14 Ht 5' 10 Wt 288 lb SpO2 98% BMI 41.32 kg/m OB Status Ablation Smoking Status Former BSA 2.54 m Physical Exam Vitals reviewed. General: AAOx3, NAD Head: atraumatic normocephalic Neck: trachea midline. No masses or lymphadenopathy Heart: Regular rate and rhythm Lungs: equal chest rise and fall, non labored breathing Abdomen: soft, nontender, and non distended Ext: motor 5/5 all extremities with no gross deformities Psych: alert and oriented, behavior appropriate ASSESSMENT AND PLAN: Assessment/Plan Diagnoses and all orders for this visit: Encounter for screening for malignant neoplasm of colon - bisacodyl (Dulcolax) 5 MG EC tablet; Take 1 tablet (5 mg) by mouth 1 time for 1 dose Do not crush, chew, or split. Take as detailed on clinic hand out for colonoscopy prep - polyethylene glycol, PEG, 3350 (Glycolax) 17 GM/SCOOP powder; Take 238 g by mouth 1 (one) time for 1 dose Take as detailed from clinic hand out for colonoscopy prep Plan: Patient is average risk for colon cancer. Colonoscopy can be scheduled electively. Patient informed of the risks of procedure which include but not limited to bleeding, perforation, and risks of anesthesia. Patient understood risks and signed informed consent for the procedure under monitored anesthesia care. Handout for bowel prep provided in clinic. Patient was informed of the need for a ride home from the hospital and the need for someone to be with them for the following 24 hrs post procedure. Thank you, Song Whitley DO documented in this encounter [facility] Evaluation note Note Date & Type Note Facility Evaluation note Diagnosis Pain Generalized pain documented in this encounter Platter Phone: Evaluation note Note Date & Type Note Facility Evaluation note Diagnosis Encounter for screening for malignant neoplasm of colon- Primary documented in this encounter [facility] Healthcare Evaluation note Note Date & Type Note Facility Evaluation note Diagnosis Screening mammogram, encounter for documented in this encounter [facility] Advance Directives No Advanced Directives Records FoundDocuments on File Type Date Recorded 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 ACP-Advance Directive ACP-Power of Core Setter Latest Code Status on File Code Status Date Activated Date Inactivated Comments Full Code 10/02/2017 7:56 AM 10/02/2017 1:06 PM Documents on File Type Date Recorded 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 ACP-Advance Directive ACP-Power of Core Setter Latest Code Status on File Code Status Date Activated Date Inactivated Comments Full Code 10/02/2017 7:56 AM 10/02/2017 1:06 PM Healthcare Agents on File Name Relationship Healthcare Agent Relationshi p Communication Payam Brenda Brother/Sister Primary Decision Maker Dipti Tea Brother/Sister Secondary Decision Maker Healthcare Agents on File Name Relationship Healthcare Agent Relationshi p Communication Payam Brenda Brother/Sister Primary Decision Maker Dipti Tea Brother/Sister Secondary Decision Maker Healthcare Agents on File Name Relationship Healthcare Agent Relationshi p Communication Payam Brenda Brother/Sister Primary Decision Maker Dipti Tea Brother/Sister Secondary Decision Maker Healthcare Agents on File Name Relationship Healthcare Agent Relationshi p Communication Payam Brenda Brother/Sister Primary Decision Maker Dipti Tea Brother/Sister Secondary Decision Maker Date Activated Date Inactivated Comments 10/02/2017 7:56 AM 10/02/2017 1:06 PM Assessments Diagnosis Women's annual routine gynecological examination Diagnosis Atypical pneumonia Pneumonia, organism unspecified Bronchospasm Acute bronchospasm Diagnosis Encounter for screening mammogram for malignant neoplasm of breast Other screening mammogram Discharge Instructions * Instructions* Aparna Lovell MD - 01/09/2020 Increase fluids, tylenol and or motrin as needed for pain. Albuterol as needed for wheezing or bronchospasms. Take medications as directed until complete. Seek medical attention for any worsening symptoms or any other concerns documented in this encounter Summary Purpose Family History No Family History Records FoundNo Family History Records FoundNo Family History Records Found Reason for Referral Specialty Diagnoses / Procedures Referred By Jonathanac t Referred To Contact Radiology Diagnoses Screening mammogram, encounter for Procedures [facility] MANDEEP DIGITAL SCREEN BILATERAL Tariq Mak MD [address] [place] [address] [address] [place] [address] Referral ID Status Reason Start Date Expiration Date V isits Requested Visits Authorized [id number] Pending Review 11/02/2023 11/01/2024 1 1 Additional Source Comments Reason for Visit (unrecogniz ed section and content) Reason Comments Shortness of Breath ongoing for one week , complains of pluritic pain Status Reason Specialty Diagnoses / Procedures Referre d By Contact Referred To Contact Closed Radiology Diagnoses Encounter for screening mammogram for malignant neoplasm of breast Procedures JUDITH MANDEEP DIGITAL SCREEN BILATERAL JUDITH DIGITAL SCREEN W OR WO CAD BILATERAL Tariq Mak MD [address] [place] [address] [place] [address] [place] [address] Reason Comments Colonoscopy Pt presents today fo r a colonoscopy consult. Pt denies/admits to: denies having a colonoscopy before. Pt denies abdominal pain. Pt denies rectal bleeding. Pt denies changes in bowel movements. Pt denies a family history of colon cancer that they know of. Pt denies any concern today. Specialty Diagnoses / Procedures Referred By Marina t Referred To Contact Radiology Diagnoses Screening mammogram, encounter for Procedures [facility] MANDEEP DIGITAL SCREEN BILATERAL Tariq Mak MD [address] [place] [address] [address] [place] [address] Referral ID Status Reason Start Date Expiration Date V isits Requested Visits Authorized [id number] Pending Review 11/02/2023 11/01/2024 1 1 INFORMATION SOURCE (unrecogn ized section and content) DATE CREATED AUTHOR 07/20/2020 [facility] DATE CREATED AUTHOR AUTHOR'S ORGANIZ ATION 12/01/[address] [facility] EPIC DATE CREATED AUTHOR AUTHOR'S ORGANIZ ATION [facility] (unrecognized sec tion and content) Medical Records Director Relationship Specialty Start Date End Date Kathya Larsen DO [address] [place], [place] [address], [place] [address] PCP - General 08/20/12 Medical Records Director Relationship Specialty Start Date End Date Kathya Larsen, DO [address] [facility] [place] [address] PCP - General 08/20/12 Medical Records Director Relationship Specialty Start Date End Date Tigre Cruz, [address] [place] [address] PCP - General Family Medicine 10/27/23 Medical Records Director Relationship Specialty Start Date End Date Tigre Cruz DO [address], [place] [id number] PCP - General Family Medicine 10/27/23 Medical Records Director Relationship Specialty Start Date End Date Any Young, ALEN - EVICTION SPECIALIST [address] [place] [address], [place] [id number] PCP - General Nurse Practitioner 12/15/23 FOR RECORDS PERTAINING TO PATIENTS WHO ARE OR HAVE BEEN ENROLLED IN A CHEMICAL DEPENDENCY/SUBSTANCEABUSE PROGRAM, SOME INFORMATION MAY BE OMITTED. This clinical summary was aggregated from multiple sources. Caution should be exercised in using it in the provision of clinical care. This summary normalizes information from multiple sources, and as a consequence, information in this document may materially change the coding, format and clinical context of patient data. In addition, data may be omitted in some cases. CLINICAL DECISIONS SHOULD BE BASED ON THE PRIMARY CLINICAL RECORDS. [facility]. provides no warranty or guarantee of the accuracy or completeness of information in this document.
[2023-12-22 08:30] VITALS: BP 132/80; PULSE 78; TEMP 36.7; O2SAT 95; BMI 40.7
[2023-12-22] MEDS: 0.9 % SODIUM CHLORIDE 500 ML 50 ML IV (08:45)
[2023-12-22 08:47] LABS: HCG Qualitative NEGATIVE (NEGATIVE); Internal Control Within Normal Limits
--- NOTE | 2023-12-22 09:44 | W.PM.PROCNOT ---
Date of procedure: 12/22/23 Pre-op diagnosis: screening c-scope Post-op diagnosis: other (mild diverticulosis, small sigmoid and rectal polyps removed via cold snare ) Procedure: Previous colonoscopy: never procedure: screening colonoscopy with cold snare polypectomy x2 The patient was given IV conscious sedation.? The patient's SPO2 remained above 90% throughout the procedure. The colonoscope was inserted per rectum and advanced under direct vision to the cecum without difficulty.? The prep was good.? Findings: Terminal ileum os: normal Cecum/Ascending colon: normal Transverse colon: normal Descending/Sigmoid colon: normal aside for small 2mm polyp at 17cm removed via cold snare forcep Rectum/Anus: examined in normal and retroflexed positions and was normal aside for small 1mm rectal polyp removed via cold snare biopsy Withdrawal Time was (minutes): 15 The colon was decompressed and the scope was removed.? The patient tolerated the procedure well. Recommendations/Plan: 1.? Lifestyle and dietary modifications as discussed 2.? F/U Biopsies 3.? F/U biopsies, likely 7-10 year follow up for repeat c-scope 4.? Discussed with the family Anesthesia: MAC Surgeon: Gautam Whitley Pathology: other (sigmoid and rectal polyp ) Condition: stable Disposition: PACU
[2023-12-22 10:10] VITALS: BP 116/80; PULSE 70; TEMP 36.7; O2SAT 94
[2023-12-22 10:25] VITALS: BP 116/80; PULSE 75; O2SAT 96
[2023-12-22 10:40] VITALS: BP 103/63; PULSE 68; O2SAT 98
== END 2023-12-22 10:40 | disposition home or self-care (01) ==
PROVIDERS: Anesthesiology; PCP Family Medicine; Visit Provider Surgery
PROC: (CPT 00812; principal; 2023-12-22 09:40)
DX: Z12.11 Encounter for screening for malignant neoplasm of colon (principal); K63.5 Polyp of colon; K57.30 Diverticulosis of large intestine without perforation or abscess without bleeding; Z87.891 Personal history of nicotine dependence; K21.9 Gastro-esophageal reflux disease without esophagitis
CPT/HCPCS: 00812; 45385; 36415; 84703; J2704